=== PATIENT | female | born 1995 | race Two or more races ===

== ENCOUNTER 2023-10-06 10:40 | Emergency (ER) | payer OTHER ==
[~2023-10-06] VITALS: Ht 172.7 cm; Wt 136.1 kg
[2023-10-06] MEDS ORDERED: SYNTHROID200 MCG PO (10:54)
[2023-10-06 11:48] LABS: URINE APPEARANCE Clear; URINE BILIRRUBIN Negative (NEGATIVE); URINE BLOOD Negative; URINE COLOR Yellow; URINE GLUCOSE Negative (NEGATIVE); URINE LEUKOCYTE Negative; URINE NITRATE Negative; URINE PROTEIN Negative (NEGATIVE)
[2023-10-06 11:48] LABS: HEMOGLOBIN 13.1 g/dL (12.0-15.00); MEAN CELL VOLUME 80.5 fL (80.00-100.00); MEAN CORPUSCULAR HGB CONC 33.5 g/dl (32.0-36.0); PLATELET COUNT 331 K/uL (150-450); RED BLOOD COUNT 4.85 M/uL (4.00-6.00); RED CELL DISTRIBUTION WIDTH 14.9 % (11.5-14.5)
[2023-10-06 11:52] LABS: URINE BACTERIA 663.8 uL (0.0-1933); URINE EPITHELIAL CELLS 11.9 uL (0.0-38.8); URINE RBC 11.2 uL (0.0-20.8); URINE WBC 8.3 uL (0.0-23.2)
[2023-10-06 12:12] LABS: CALCIUM 9.2 mg/dL (8.5-10.1); CREATININE SERUM 0.65 mg/dL (0.55-1.02); GFR 109.34; POTASSIUM 3.92 mEq/L (3.5-5.1)
== END 2023-10-06 16:49 | disposition home or self-care (01) ==
LOC: ER 10:41
PROVIDERS: General Practice
DX: R10.2 Pelvic and perineal pain (principal); K80.20 Calculus of gallbladder without cholecystitis without obstruction; Z88.0 Allergy status to penicillin; E03.9 Hypothyroidism, unspecified

== ENCOUNTER 2025-07-22 19:57 | Emergency (ER) | payer OTHER ==
[~2025-07-22] VITALS: Ht 172.7 cm; Wt 136.1 kg
[~2025-07-22 19:57] MED LIST: SYNTHROID200 MCG PO
[2025-07-22] MEDS ORDERED: FAMOTIDINE/PF 20 MG/2 ML VIAL IV ONE (21:45)
[2025-07-22] MEDS ORDERED: KETOROLAC TROMETHAMINE 30 MG VIAL IU ONE (21:45)
[2025-07-22] MEDS ORDERED: 0.9 % SODIUM CHLORIDE 1,000 ML IV SCH (21:45)
[2025-07-22] MEDS ORDERED: KETOROLAC TROMETHAMINE 30 MG VIAL ONE (22:12)
[2025-07-22] MEDS ORDERED: FAMOTIDINE/PF 20 MG/2 ML VIAL ONE (22:13)
[2025-07-22 23:35] LABS: BASO % 0.4 % (0.1-1.2); EOS # 0.05 (0.04-0.54); EOS % 0.3 % (0.7-7.0); LYMPH # 3.57 (1.18-3.74); LYMPH % 21.7 % (19.3-53.1); MEAN PLATELET VOLUME 9.40 fl (9.4-12.4); MONO # 1.04 (0.24-0.82); MONO % 6.3 % (4.7-12.5); NEUT # 11.68 (1.56-6.13); NEUT % 71.0 % (34.0-71.1); RED CELL DISTRIBUTION WIDTH 14.1 % (11.6-14.4)
[2025-07-22 23:45] LABS: ERYTHROCYTE SEDIMENTATION RATE 20 mm/hr (0-20)
[2025-07-23 00:08] LABS: ALT/SGPT 17.0 U/L (12-78); AST/SGOT 10.0 U/L (15-37); BILIRUBIN TOTAL 0.5 mg/dL (0.3-1.2); BUN CREA RATIO 15.0 (7.0-25.0); CREATININE SERUM 0.79 mg/dL (0.55-1.02); GFR 86.66; GLOBULINA 4.1 G/DL (2.4-3.5); GLUCOSE FASTING 88.0 mg/dL (65-100); OSMOLALITY SERUM 277.0 MOSM/KG (275-295)
[2025-07-23 01:31] LABS: URINE APPEARANCE Clear; URINE BILIRRUBIN Negative (NEGATIVE); URINE BLOOD Negative; URINE COLOR Yellow; URINE GLUCOSE Negative (NEGATIVE); URINE KETONE Negative (NEGATIVE); URINE LEUKOCYTE Negative; URINE NITRATE Negative; URINE PROTEIN Negative (NEGATIVE); URINE UROBILINOGEN 0.2 E.U./dl
[2025-07-23 01:34] LABS: URINE BACTERIA 328.8 uL (0.0-1933); URINE EPITHELIAL CELLS 8.2 uL (0.0-38.8); URINE RBC 5.8 uL (0.0-20.8); URINE WBC 4.7 uL (0.0-23.2)
[2025-07-23] MEDS ORDERED: METRONIDAZOLE/SODIUM CHLORIDE 500 MG/100 ML PIGGYBACK IV ONE ×2 (01:45→02:05)
[2025-07-23] MEDS ORDERED: CIPROFLOXACIN IN 5 % DEXTROSE 400 MG/200 ML PIGGYBAG IV ONE ×2 (01:45→02:05)
[2025-07-23 01:50] LABS: URINE CAST 0.00 uL (0.0-1.40)
[2025-07-23] MEDS ORDERED: FAMOTIDINE/PF 20 MG/2 ML VIAL ONE (02:15)
[2025-07-23] MEDS ORDERED: KETOROLAC TROMETHAMINE 30 MG VIAL IV STA (02:28)
[2025-07-23] MEDS ORDERED: KETOROLAC TROMETHAMINE 30 MG VIAL ONE (02:39)
[2025-07-23] MEDS ORDERED: CIPRO500 MG PO (04:53)
[2025-07-23] MEDS ORDERED: KETO10TA2 PO (04:53)
== END 2025-07-23 04:59 ==
LOC: ER 19:58
PROVIDERS: Student in an Organized Health Care Education/Training Program
DX: K57.32 Diverticulitis of large intestine without perforation or abscess without bleeding (principal); Z88.0 Allergy status to penicillin; N39.0 Urinary tract infection, site not specified; B34.9 Viral infection, unspecified; E03.1 Congenital hypothyroidism without goiter